=== PATIENT | male | born 1985 | race Asian ===

== ENCOUNTER 2018-01-20 20:39 | Emergency (ER) | payer OTHER ==
[~2018-01-20] VITALS: Ht 154.9 cm; Wt 56.9 kg
[2018-01-20 20:44] VITALS: Ht 154.9 cm; Wt 56.9 kg
[2018-01-20 21:24] VITALS: BP 121/75
== END 2018-01-20 21:24 | disposition home or self-care (01) ==
LOC: ED 20:39
DX: L02.436 Carbuncle of left lower limb (principal); R03.0 Elevated blood-pressure reading, without diagnosis of hypertension
CPT/HCPCS: J2001

== ENCOUNTER 2018-01-22 20:47 | Emergency (ER) | payer OTHER ==
[~2018-01-22] VITALS: Ht 154.9 cm; Wt 57.2 kg
[2018-01-22 21:11] VITALS: Ht 154.9 cm; Wt 57.2 kg
[2018-01-22 21:55] VITALS: BP 121/77
== END 2018-01-22 21:55 | disposition home or self-care (01) ==
LOC: ED 20:47
DX: Z48.01 Encounter for change or removal of surgical wound dressing (principal)